=== PATIENT | male | born 1990 | race Caucasian/White ===

== ENCOUNTER 2024-01-13 14:04 | Inpatient (IN) | payer MEDICAID, OTHER ==
[~2024-01-13] VITALS: Ht 172.7 cm; Wt 84.8 kg
[2024-01-13] MEDS: HALOPERIDOL LACTATE 5 MG/ML VIAL IM ONE (15:16)
[2024-01-13] MEDS: DiphenhydrAMINE HCL 50 MG/ML VIAL IM ONE (15:16)
[2024-01-13] MEDS: LORazepam 2 MG/ML VIAL IM ONE (15:17)
[2024-01-13 15:34] LABS: BASOPHILS % (AUTO) 0.6 % (0.0-2.0); HEMATOCRIT 40.7 % (41-53); HEMOGLOBIN 13.7 g/dL (13.5-17.5); LYMPHOCYTES # (AUTO) 2.8 K/uL (1.0-4.8); LYMPHOCYTES % (AUTO) 22.7 % (22.0-44.0); MEAN CORPUSCULAR HGB CONC 33.7 G/dL (31.0-37.0); MEAN CORPUSCULAR VOLUME 92 fL (80-100); NEUTROPHILS # (AUTO) 8.1 K/uL (1.8-7.7); NEUTROPHILS % (AUTO) 65.7 % (40.0-70.0); PLATELET COUNT (AUTO) 371 K/uL (150-450); RED BLOOD CELL COUNT(AUTO) 4.43 MIL/uL (4.50-5.90); RED CELL DISTRIBUTION WIDTH 12.8 % (11.5-14.5); WHITE BLOOD COUNT (AUTO) 12.3 K/uL (4.5-11.0)
[2024-01-13 15:37] LABS: PH,URINE DRUG SCREEN 5.5 (5.0-8.0)
[2024-01-13 15:41] LABS: ANION GAP 11 mmol/L (8-16); CALCIUM, TOTAL 9.9 mg/dL (8.8-10.5); CARBON DIOXIDE 28 mmol/L (22-29); CHLORIDE 99 mmol/L (98-107); CREATININE 1.09 mg/dL (0.60-1.30); GLOMERULAR FILTR. RATE CALC > 60 mL/min (>60); GLUCOSE,RANDOM 113 mg/dL (70-110); POTASSIUM 3.1 mmol/L (3.5-5.1); SODIUM SERUM 138 mmol/L (136-145); UREA NITROGEN, BLOOD 16 mg/dL (7-18)
[2024-01-13 16:21] LABS: ALCOHOL, URINE DRUG SCREEN NEGATIVE (NEGATIVE); AMPHET/METH SCREEN,URINE POSITIVE (NEGATIVE); BARBITURATE SCREEN, URINE NEGATIVE (NEGATIVE); BENZODIAZEPINES SCREEN,URINE NEGATIVE (NEGATIVE); CANNABINOID SCREEN,URINE POSITIVE (NEGATIVE); COCAINE SCREEN,URINE NEGATIVE (NEGATIVE); METHADONE SCREEN, URINE NEGATIVE (NEGATIVE); OPIATE SCREEN,URINE NEGATIVE (NEGATIVE); PHENCYCLIDINE SCREEN,URINE NEGATIVE (NEGATIVE)
[2024-01-13 17:09] LABS: ALCOHOL, BLOOD (SERUM) < 3 mg/dL (0-10)
[2024-01-14] MEDS ORDERED: QUET200T PO (11:11)
[2024-01-14] MEDS: QUEtiapine FUMARATE 100 MG TABLET PO ONE (11:27)
[2024-01-15] MEDS: POTASSIUM CHLORIDE 20 MEQ ER TABLET PO ONE (05:40)
[2024-01-15 05:45] LABS: COVID AG,FIA SOURCE NASAL SWAB
[2024-01-15 06:16] LABS: SARS-COV2 (COVID) ANTIGEN,FIA Negative (Negative)
[2024-01-15 10:46] VITALS: BP 126/71; PULSE 75; RESP 18; TEMP 98.6; O2SAT 98
[2024-01-15 10:56] VITALS: BP 126/71; PULSE 75; RESP 18; TEMP 98.6
[2024-01-15 11:19] VITALS: BP 126/71; PULSE 75; RESP 18; TEMP 98.6
[2024-01-15] MEDS: HALOPERIDOL 5 MG TABLET PO PRN (13:28)
[2024-01-15] MEDS: LORazepam 2 MG TABLET PO PRN (13:28)
[2024-01-15] MEDS ORDERED: PNEUMOCOCCAL VACCINE POLYVALENT 0.5 ML SYRINGE [PPSV23] IM. ONE (14:30)
[2024-01-15] MEDS ORDERED: MAG HYDROX/ALUMINUM HYD/SIMETH ES 30 ML SUSPENSION UDCUP PO PRN (20:30)
[2024-01-15] MEDS ORDERED: MAGNESIUM HYDROXIDE SUSPENSION 30 ML UDCUP PO PRN (20:30)
[2024-01-15] MEDS ORDERED: ACETAMINOPHEN 325 MG TABLET PO PRN (20:30)
[2024-01-15] MEDS ORDERED: PETROLATUM,WHITE 28 GM JELLY TP PRN (20:30)
[2024-01-15] MEDS ORDERED: IBUPROFEN 600 MG TABLET PO PRN (20:30)
[2024-01-15] MEDS ORDERED: BACITRACIN 28 GM OINTMENT TP PRN (20:30)
[2024-01-15] MEDS ORDERED: CloNIDine HCL 0.1 MG TABLET PO PRN (20:30)
[2024-01-15] MEDS ORDERED: ONDANSETRON HCL 4 MG TABLET PO PRN (20:30)
[2024-01-15] MEDS ORDERED: OMEPRAZOLE 20 MG CAPSULE PO PRN (20:30)
[2024-01-15] MEDS ORDERED: LOPERAMIDE HCL 2 MG CAPSULE PO PRN (20:30)
[2024-01-15] MEDS ORDERED: DOCUSATE SODIUM 100 MG CAPSULE PO PRN (20:30)
[2024-01-15] MEDS ORDERED: BENZOCAINE/MENTHOL LOZENGE PO PRN (20:30)
[2024-01-15] MEDS ORDERED: ALBUTEROL SULFATE HFA 90 MCG/PUFF 8 GM INHALER IH PRN (20:30)
[2024-01-15] MEDS: QUEtiapine FUMARATE 200 MG TABLET PO SCH (21:23)
[2024-01-15 21:57] VITALS: BP 131/82; PULSE 86; RESP 18; TEMP 97.3; O2SAT 98
[2024-01-16] MEDS: ZOLPIDEM TARTRATE 10 MG TABLET PO PRN (02:21)
[2024-01-16 08:04] LABS: ANION GAP 6 mmol/L (8-16); CARBON DIOXIDE 28 mmol/L (22-29); CHLORIDE 106 mmol/L (98-107); CREATININE 0.88 mg/dL (0.60-1.30); GLOMERULAR FILTR. RATE CALC > 60 mL/min (>60); GLUCOSE,RANDOM 98 mg/dL (70-110); POTASSIUM 4.2 mmol/L (3.5-5.1); SODIUM SERUM 140 mmol/L (136-145); UREA NITROGEN, BLOOD 14 mg/dL (7-18)
[2024-01-16 10:08] VITALS: BP 123/86; PULSE 95; RESP 18; TEMP 97; O2SAT 98
[2024-01-16 10:13] VITALS: BP 123/86; PULSE 95; RESP 18; TEMP 97
[2024-01-16 21:32] VITALS: BP 113/75; PULSE 116; RESP 18; TEMP 97.7; TEMP 97.9; O2SAT 98
[2024-01-17 09:37] VITALS: BP 128/79; PULSE 93; RESP 18; TEMP 97.9; O2SAT 95
== END 2024-01-17 17:00 | disposition home or self-care (01) | DRG 750 ==
LOC: EMS 14:06 → 3EI 01-15 13:21
PROVIDERS: ADMIT Psychiatry & Neurology Psychiatry; ATTEND Psychiatry & Neurology Psychiatry
DX: F20.9 Schizophrenia, unspecified (principal); R45.851 Suicidal ideations; E87.6 Hypokalemia; F15.10 Other stimulant abuse, uncomplicated; Z20.822 Contact with and (suspected) exposure to COVID-19; G47.00 Insomnia, unspecified; K59.00 Constipation, unspecified; F41.9 Anxiety disorder, unspecified; F12.10 Cannabis abuse, uncomplicated; Z72.0 Tobacco use
CPT/HCPCS: 80048; 80307; 85025; 96372; 99285; G0480; J1200; J1630; J2060